=== PATIENT | male | born 1945 | race Caucasian/White ===

== ENCOUNTER 2017-01-15 05:30 | Day surgery (SDC) | payer MEDICARE ==
[~2017-01-15] VITALS: Ht 177.8 cm; Wt 60.8 kg
[~2017-01-15 05:30] MED LIST: CIPRO500 MG PO; CIPROFLOXACIN500 MG PO; COLACE100 MG PO; DAILY VITAMIN1 EAC2 PO; FISH OIL500 MG PO; FLAGYL500 MG PO; FOLIC ACID1 MG PO; LAMISIL250 MG PO; LEVAQUIN500 MG PO; LEVOTHYROXINE100 MCG PO; LOPERAMIDE2 MG PO; MELOXICAM15 MG PO; PANTOPRAZOLE SO20 MG PO; PANTOPRAZOLE SO40 MG PO; PAROXETINE HCL10 MG PO; PAROXETINE HCL20 MG PO; PAXIL20 MG PO; RANITIDINE HCL150 M1 PO; SYNTHROID50 MCG PO; TRAMADOL HCL50 MG PO; VITAMIN B-1100 M1 PO
--- NOTE | 2017-01-15 06:03 | NUR ---
MARTELL VAUGHN ON WARM. CAREGIVER REMAINS @ BS.
--- NOTE | 2017-01-15 08:41 | NUR ---
01/15/17 0840 Nova Buchanan 0836-PATIENT ARRIVED TO PACU ON 8L MASK O2 SAT 100% REQUIRING RN TO ASSIST TO MAINTAIN OPEN AIRWAY. SCALP INCISION WITH SUTURES SLIGHTLY BLOODY. NONAROUSABLE. 0838-PATIENT MAINTAINING OWN AIRWAY 8L MASK O2 SAT 100%
--- NOTE | 2017-01-15 09:39 | NUR ---
PATIENT BACK IN DAY SURGERY ROOM FROM PACU. PATIENT QUIET. ANSWERS SOME QUESTIONS. SLOW TO RESPOND. APPEARS COMFORTABLE. GIVEN SIPS OF WATER. SCALP INCISION OPEN TO AIR WITH SMALL AMOUNT OF RED DRAINAGE. ICE PACK TO HEAD. IV SITE WNL. SCDs ON. CALL LIGHT WITHIN REACH. EDUCATED ON NEED TO CALL FOR HELP IF WANTS TO GET OOB.
[2017-01-15] MEDS ORDERED: NORCO 5-325 TA1 EACH PO (09:49)
--- NOTE | 2017-01-15 13:09 | NUR ---
PT RESTING IN BED. VERY DIFFICULT TO HEAR. PT DID REQUEST PRAYER. WILL FOLLOW NEEDED
--- NOTE | 2017-01-15 13:10 | NUR ---
1040: PATIENT ASSISTED OOB AND TO BATHROOM BY RNs. ALSO USED PERSONAL WALKER. PATIENT INCONTINENT. PATIENT ASSISTED BACK TO BED. EATING BREAKFAST. 1130: PATIENT TOLERATED BREAKFAST. IV DC'D WNL. DRESSING APPLIED. PATIENT ASSISTED TO GET DRESSED. WAITING FOR CAREGIVER. 1200: PATIENT INSISTENT ON LEAVING. STATES TIRED OF WAITING. PATIENT AMBULATED OUT OF DEPARTMENT USING PERSONAL WALKER WITH RN STAND BY ASSIST. PATIENT DISCHARGED BACK TO [facility] VIA [facility]. 1250: PHONE CALL PLACED TO [facility] TO GIVE REPORT. [facility] REQUESTED I FAX DISCHARGE PAPERS INSTEAD AND DID NOT TAKE REPORT. 1255: DISCHARGE SHEETS FAXED. RN TO DELIVER DISCHARGE PACKET WITH PRESCRIPTION TO [facility] THIS AFTERNOON.
--- NOTE | 2017-01-18 16:47 | OR ---
[facility] [address], [place] [address] Signed PREOPERATIVE DIAGNOSIS: Right parietal scalp lesion (3 cm). POSTOPERATIVE DIAGNOSIS: Right parietal scalp cystic skin lesion (3 cm). PROCEDURES: Excision of right parietal scalp cystic skin lesion. ESTIMATED BLOOD LOSS: Minimal. INDICATIONS: Russell is a 71-year-old gentleman, who came to the office with his caregiver. He had a 3-cm right parietal scalp lesion. It feels mobile and not attached to underlying structures. Its exact etiology was not clear. The overlying skin is quite thin. I had a discus s ion with Russell's caregiver and I explained to them I thought it was a little much to do in the office under local anesthetic. I explained to Russell that we could make an incision over it and look at the underlying structure and if it was excisable, I could do that, if not, we might have to just biopsy the lesion and deal with more extensive surgery later on. He understands the risk to the surgery including but not limited to, bleeding, infection, scarring, change in contour of the skin as well as the possib le need for additional procedures. He had expressed understanding and wished to proceed. PROCEDURE NOTE: I met with Russell in our preop area. The lesion is quite obvious on posterior aspect of the right parietal scalp. We marked that appropriately. Russell was then taken in the operating room and placed in the supine position under general LMA anesthesia. He was given preoperative antibiotics along with subcutaneous heparin. SCDs were utilized. He was then prepped and draped in the usual sterile fashion. We used a 15 blade knife to make a very light incision over the lesion, was that carefully and we could see that this was a cystic appearing structure. We carefully dissected around the lesion bluntly with hemostats. Underneath, we had a few areas w here we needed a needle-tip cautery and from the underlying scalp. After this, we excised the redundant thin skin with the help of a 15 blade knife back to the thicker healthier skin near the edges of the lesion. The wound was irrigated and suct ioned out until clear. We then brought the dermis together with interrupted 3-0 Monocryl sutures. The skin edges were then reapproximated with a running 6-0 fast absorbing plain gut suture. The wound was then irrigated and washed clean. There was no dressing applied. He was extubated from anesthesia, and taken into the recovery room in stable condition. Electronically Signed By: DIANA FRIEND MD 01/18/17 1647 PATIENT NAME: RUSSELL ROLDAN OPERATIVE REPORT DATE OF : 49 PHYSICIAN: DIANA FRIEND MD REPORT #: [id number] REPORT IS CONFIDENTIAL AND NOT TO BE RELEASED WITHOUT AUTHORIZATION [facility] [address] [place] [id number] Signed MD STEPHENIE Hearn/Edel /[id number] Electronically Signed By: DIANA FRIEND MD 01/18/17 1647 PATIENT NAME: RUSSELL ROLDAN JACQUELIN OPERATIVE REPORT DATE OF : 49 PHYSICIAN: DIANA FRIEND MD REPORT #: [id number] REPORT IS CONFIDENTIAL AND NOT TO BE RELEASED WITHOUT AUTHORIZATION
== END 2017-01-15 12:00 | disposition home or self-care (01) ==
LOC: DS 05:30
PROVIDERS: Colon & Rectal Surgery
PROC: 0HB0XZZ Excision of Scalp Skin, External Approach (ICD-10-PCS; principal; 2017-01-15 06:45)
DX: L72.11 Pilar cyst (principal); J44.9 Chronic obstructive pulmonary disease, unspecified; E03.9 Hypothyroidism, unspecified; M81.0 Age-related osteoporosis without current pathological fracture; Z98.890 Other specified postprocedural states; Z88.0 Allergy status to penicillin; Z87.891 Personal history of nicotine dependence; Z79.899 Other long term (current) drug therapy; Z87.440 Personal history of urinary (tract) infections
CPT/HCPCS: 00300; 88304; J1100; J1644; J1956; J2250; J2405; J3010; J7120